=== PATIENT | female | born 1965 | race African-American/Black ===

== ENCOUNTER 2018-06-13 11:41 | Emergency (ER) | payer BC, MEDICAID ==
[~2018-06-13] VITALS: Ht 172.7 cm; Wt 119.7 kg
[2018-06-13 11:49] VITALS: BP 162/88
[2018-06-13] MEDS: LEVOFLOXACIN 500 MG TAB PO ONE (13:13)
[2018-06-13] MEDS: IBUPROFEN 600 MG TAB PO ONE (13:14)
[2018-06-13] MEDS: traMADol 50 MG TAB PO ONE (13:15)
[2018-06-13] MEDS: cefTRIAXone 1,000 MG in LIDOCAINE 1% ***ER ONLY *** 2.1 ML IM ONE (13:16)
[2018-06-13 14:51] LABS: APPEARANCE,URINE CLEAR (CLEAR); BILIRUBIN,URINE NEGATIVE (NEGATIVE); BLOOD, URINE NEGATIVE (NEGATIVE); COLOR,URINE YELLOW (YELLOW); LEUKOCYTE ESTERASE ,URINE NEGATIVE (NEGATIVE); NITRITE, URINE NEGATIVE (NEGATIVE); UGLUCOSE NEGATIVE (NEGATIVE)
[2018-06-13 15:51] VITALS: BP 157/81
== END 2018-06-13 15:30 | disposition home or self-care (01) ==
LOC: MED 11:41
DX: H66.93 Otitis media, unspecified, bilateral (principal); H60.12 Cellulitis of left external ear; J32.9 Chronic sinusitis, unspecified; E66.9 Obesity, unspecified; Z68.41 Body mass index [BMI] 40.0-44.9, adult; I10 Essential (primary) hypertension
CPT/HCPCS: 36415; 81003; 82948; 83036; 96372; 99284; J0696; J2001

== ENCOUNTER 2020-03-13 19:59 | Emergency (ER) | payer MEDICAID ==
[~2020-03-13] VITALS: Ht 172.7 cm; Wt 152.4 kg
[2020-03-13 20:06] VITALS: BP 119/68
--- NOTE | 2020-03-13 20:12 | NUR ---
PT AMBULATED TO LOBBY WITH STEADY GAIT.
--- NOTE | 2020-03-13 20:32 | NUR ---
PT TAKEN TO XRAY
--- NOTE | 2020-03-13 20:44 | NUR ---
PT RETURN TO ER LOBBY FROM RAD
--- NOTE | 2020-03-13 20:52 | NUR ---
PT TAKEN TO BED 7
--- NOTE | 2020-03-13 21:09 | NUR ---
Ronal salguero in [facility] - 03/13/20 at [address] Stein examining patient.
--- NOTE | 2020-03-13 21:09 | NUR ---
DR. AMAYA AT BEDSIDE.
--- NOTE | 2020-03-13 21:27 | NUR ---
X-Ray at bedside.
--- NOTE | 2020-03-13 21:46 | NUR ---
54 Y/O FEMALE PRESENTS TO THE ER WITH C/O RIGHT SHOULDER PAIN, ON AND OFF X 1 WEEK. 5/10 PAIN. PT STATES RIGHT SHOULDER PAIN WITH MOVEMENT, DENIES PAIN RADIATING TO OTHER LOCATION, INJURY/TRAUMA, CHEST PAIN, SOB, COUGH, NAUSEA, VOMITING, DIARRHEA, HEADACHE, NUMBNESS, TINGLING IN EXTREMITY. CAP REFILL <3 SEC, R/R EQUAL, AND UNLABORED, VSS, SIDE RAIL X1, BED IN LOW POSITION, WILL CONTINUE TO MONITOR NKDA PMH: HTN
--- NOTE | 2020-03-13 21:47 | NUR ---
Patient discharged with v/s stable. Written and verbal after care instructions given and explained. Patient alert, oriented and verbalized understanding of instructions. Ambulatory with steady gait. All questions addressed prior to discharge. ID band removed. Patient advised to follow up with PMD. Rx of ROBAXIN, MOTRIN given. Patient educated on indication of medication including possible reaction and side effects. Opportunity to ask questions provided and answered.
[2020-03-13 21:48] VITALS: BP 119/68
== END 2020-03-13 21:47 | disposition home or self-care (01) ==
LOC: MED 19:59
DX: S39.012A Strain of muscle, fascia and tendon of lower back, initial encounter (principal); I10 Essential (primary) hypertension; X58.XXXA Exposure to other specified factors, initial encounter; Y93.89 Activity, other specified; Y92.89 Other specified places as the place of occurrence of the external cause; Y99.8 Other external cause status
CPT/HCPCS: 71045; 73030; 99284

== ENCOUNTER 2021-07-19 13:22 | Emergency (ER) | payer MEDICAID ==
[~2021-07-19] VITALS: Ht 167.6 cm; Wt 140.2 kg
[2021-07-19 13:49] VITALS: BP 198/97
[2021-07-19] MEDS ORDERED: NAPR-54 PO (14:53)
[2021-07-19] MEDS ORDERED: AMOX-1000 PO (14:53)
--- NOTE | 2021-07-19 15:10 | NUR ---
Patient discharged with v/s stable. Written and verbal after care instructions given and explained. Patient alert, oriented and verbalized understanding of instructions. Ambulatory with steady gait. All questions addressed prior to discharge. ID band removed. Patient advised to follow up with PMD. Rx of Augmentin and Naproxen given. Patient educated on indication of medication including possible reaction and side effects. Opportunity to ask questions provided and answered.
== END 2021-07-19 15:10 | disposition home or self-care (01) ==
LOC: MED 13:22
DX: J32.1 Chronic frontal sinusitis (principal); Z20.822 Contact with and (suspected) exposure to COVID-19; M79.10 Myalgia, unspecified site; M25.511 Pain in right shoulder; M25.512 Pain in left shoulder; M54.2 Cervicalgia; I10 Essential (primary) hypertension; Z98.890 Other specified postprocedural states; Z79.899 Other long term (current) drug therapy
CPT/HCPCS: 71045; 87804; 99284

== ENCOUNTER 2023-12-22 12:14 | Inpatient (IN) | payer MEDICAID ==
[~2023-12-22] VITALS: Ht 170.2 cm; Wt 126.6 kg
[~2023-12-22 12:14] MED LIST: AMOX-1000 PO; NAPR-337 PO
[2023-12-22 12:17] VITALS: BP 160/82; PULSE 60; RESP 18; TEMP 98.3; O2SAT 98
[2023-12-22 12:51] LABS: BASOPHILS % (AUTO) 0.6 % (0.0-2.0); EOSINOPHILS # (AUTO) 0.1 K/uL (0-0.4); EOSINOPHILS % (AUTO) 1.6 % (0.0-4.0); HEMATOCRIT 35.5 % (36-48); HEMOGLOBIN 11.5 g/dL (12.0-16.0); LYMPHOCYTES # (AUTO) 2.2 K/uL (2.5-16.5); LYMPHOCYTES % (AUTO) 29.4 % (20.5-51.1); MEAN CORPUSCULAR HEMOGLOBIN 27 pg (27-31); MEAN CORPUSCULAR HGB CONC 33 g/dL (33-37); MONOCYTES # (AUTO) 0.6 K/uL (0.8-1.0); MONOCYTES % (AUTO) 8.5 % (1.7-9.3); NEUTROPHILS # (AUTO) 4.4 K/uL (1.8-7.7); NEUTROPHILS % (AUTO) 59.9 % (42.2-75.2); PLATELET COUNT (AUTO) 240 K/uL (140-450); RED BLOOD CELL COUNT(AUTO) 4.27 MIL/uL (4.20-5.40); RED CELL DISTRIBUTION WIDTH 14.5 % (11.6-13.7); WHITE BLOOD COUNT (AUTO) 7.4 K/uL (4.8-10.8)
[2023-12-22 13:01] LABS: ANION GAP 9.7 (8-16); CALCIUM 9.1 mg/dL (8.5-10.1); CARBON DIOXIDE 28.9 mmol/L (21-32); CREATININE 0.9 mg/dL (0.6-1.3); POTASSIUM 3.6 mmol/L (3.5-5.1)
[2023-12-22] MEDS: TETRACAINE HCL/PF 0.5% OPTH 4 ML BTL OP ONE (15:05)
[2023-12-22] MEDS: FLUORESCEIN OPTH STRIP 1 MG OP ONE (15:06)
[2023-12-22] MEDS: ASPIRIN 325 MG TAB PO ONE (15:11)
[2023-12-22] MEDS ORDERED: TOBRAMYCIN 0.3% OPTH OINT 3.5 GM TUBE OP SCH ×2 (16:00→17:32)
[2023-12-22 17:00] LABS: ANION GAP 10.7 (8-16); CALCIUM 9.1 mg/dL (8.5-10.1); CARBON DIOXIDE 27.8 mmol/L (21-32); CREATININE 0.9 mg/dL (0.6-1.3); POTASSIUM 3.5 mmol/L (3.5-5.1); TOTAL BILIRUBIN 0.5 mg/dL (0.0-1.0)
[2023-12-22 19:00] VITALS: PULSE 63; RESP 20; O2SAT 100
[2023-12-22] MEDS: TOBRAMYCIN 0.3% OPTH SOL 5 ML BTL OP SCH (19:50)
[2023-12-22 20:00] VITALS: BP 166/71; PULSE 63; RESP 20; TEMP 97.9; O2SAT 96
[2023-12-23] MEDS ORDERED: LORazepam 1 MG TAB PO PRN (00:15)
[2023-12-23] MEDS ORDERED: ONDANSETRON 4 MG/2 ML VIAL IVP PRN (00:15)
[2023-12-23] MEDS ORDERED: ZOLPIDEM 5 MG TAB PO PRN (00:15)
[2023-12-23] MEDS ORDERED: ASPIRIN 81 MG TAB.CHEW PO ONE (00:15)
[2023-12-23] MEDS ORDERED: NITROGLYCERIN 0.4 MG TAB SL PRN (00:15)
[2023-12-23 01:10] LABS: BASOPHILS % (AUTO) 0.4 % (0.0-2.0); EOSINOPHILS # (AUTO) 0.2 K/uL (0-0.4); EOSINOPHILS % (AUTO) 1.8 % (0.0-4.0); HEMATOCRIT 33.5 % (36-48); HEMOGLOBIN 10.8 g/dL (12.0-16.0); LYMPHOCYTES # (AUTO) 3.6 K/uL (2.5-16.5); LYMPHOCYTES % (AUTO) 41.5 % (20.5-51.1); MEAN CORPUSCULAR HEMOGLOBIN 27 pg (27-31); MEAN CORPUSCULAR HGB CONC 32 g/dL (33-37); MEAN CORPUSCULAR VOLUME 83.2 fL (80-94); NEUTROPHILS % (AUTO) 45.3 % (42.2-75.2); PLATELET COUNT (AUTO) 249 K/uL (140-450); RED BLOOD CELL COUNT(AUTO) 4.03 MIL/uL (4.20-5.40); RED CELL DISTRIBUTION WIDTH 14.4 % (11.6-13.7); WHITE BLOOD COUNT (AUTO) 8.7 K/uL (4.8-10.8)
[2023-12-23 01:27] LABS: CHOL/HDL RATIO 2.3 (1-4.5)
[2023-12-23 04:00] VITALS: BP 149/79; PULSE 71; RESP 20; TEMP 98.1; O2SAT 97
[2023-12-23] MEDS: ACETAMINOPHEN 325 MG TAB PO PRN (04:25)
[2023-12-23 08:00] VITALS: BP 131/77; PULSE 62; PULSE 71; RESP 18; TEMP 97.3; O2SAT 94; O2SAT 97
[2023-12-23] MEDS ORDERED: LOSARTAN 25 MG TAB PO SCH (09:00)
[2023-12-23] MEDS: LOSARTAN 50 MG TAB PO SCH (09:46)
[2023-12-23] MEDS: PANTOPRAZOLE 40 MG INJ VIAL IVP SCH (09:46)
[2023-12-23] MEDS: carvediloL 3.125 MG TAB PO SCH (09:47)
[2023-12-23] MEDS: DOCUSATE SODIUM 100 MG GELCAP PO SCH (09:55)
[2023-12-23] MEDS: hydroCHLOROthiazide 25 MG TAB PO SCH (11:38)
[2023-12-23] MEDS: FUROSEMIDE 20 MG/2 ML VIAL IVP SCH (13:56)
[2023-12-23 18:00] VITALS: BP 149/81; PULSE 61; RESP 18; TEMP 97.7; O2SAT 97
[2023-12-23 20:00] VITALS: BP 187/71; PULSE 68; RESP 19; TEMP 97.3; TEMP 97.7; O2SAT 100
[2023-12-23] MEDS: SIMVASTATIN 20 MG TAB PO SCH (21:21)
[2023-12-24] VITALS: BP 183/70; PULSE 62; RESP 19; TEMP 97.7; O2SAT 100
[2023-12-24] MEDS: hydrALAZINE 20 MG/ML VIAL IVP PRN (00:06)
[2023-12-24 04:00] VITALS: BP 160/81; PULSE 64; RESP 18; TEMP 97.1; O2SAT 100
[2023-12-24 05:53] LABS: BASOPHILS % (AUTO) 0.4 % (0.0-2.0); EOSINOPHILS # (AUTO) 0.2 K/uL (0-0.4); EOSINOPHILS % (AUTO) 1.9 % (0.0-4.0); HEMOGLOBIN 10.9 g/dL (12.0-16.0); LYMPHOCYTES # (AUTO) 3.2 K/uL (2.5-16.5); MEAN CORPUSCULAR HEMOGLOBIN 27 pg (27-31); MEAN CORPUSCULAR HGB CONC 32 g/dL (33-37); MEAN CORPUSCULAR VOLUME 83.6 fL (80-94); MONOCYTES # (AUTO) 0.7 K/uL (0.8-1.0); MONOCYTES % (AUTO) 8.9 % (1.7-9.3); NEUTROPHILS # (AUTO) 4.3 K/uL (1.8-7.7); NEUTROPHILS % (AUTO) 50.8 % (42.2-75.2); PLATELET COUNT (AUTO) 236 K/uL (140-450); RED BLOOD CELL COUNT(AUTO) 4.07 MIL/uL (4.20-5.40); RED CELL DISTRIBUTION WIDTH 14.3 % (11.6-13.7); WHITE BLOOD COUNT (AUTO) 8.4 K/uL (4.8-10.8)
[2023-12-24 08:00] VITALS: BP 139/76; PULSE 52; RESP 19; TEMP 97.8; TEMP 98.2; O2SAT 100; O2SAT 99
[2023-12-24 08:14] LABS: ANION GAP 14.4 (8-16); CALCIUM 9.1 mg/dL (8.5-10.1); CARBON DIOXIDE 25.2 mmol/L (21-32); CREATININE 0.9 mg/dL (0.6-1.3); POTASSIUM 3.6 mmol/L (3.5-5.1); TOTAL BILIRUBIN 0.3 mg/dL (0.0-1.0); TOTAL PROTEIN, SERUM 6.9 g/dL (6.4-8.2)
[2023-12-24 16:00] VITALS: BP 147/82; PULSE 62; RESP 19; TEMP 97.9; O2SAT 100
[2023-12-24 20:00] VITALS: BP 160/78; PULSE 65; RESP 18; TEMP 97.7; O2SAT 97
[2023-12-24] MEDS: carvediloL 6.25 MG TAB PO SCH (20:51)
[2023-12-25 04:00] VITALS: BP 138/79; PULSE 60; RESP 18; TEMP 98.2; O2SAT 98
[2023-12-25 05:35] LABS: BASOPHILS # (AUTO) 0.1 K/uL (0.00-0.22); BASOPHILS % (AUTO) 0.7 % (0.0-2.0); EOSINOPHILS # (AUTO) 0.2 K/uL (0-0.4); EOSINOPHILS % (AUTO) 1.9 % (0.0-4.0); HEMATOCRIT 34.8 % (36-48); HEMOGLOBIN 11.1 g/dL (12.0-16.0); LYMPHOCYTES # (AUTO) 3.2 K/uL (2.5-16.5); MEAN CORPUSCULAR HEMOGLOBIN 27 pg (27-31); MEAN CORPUSCULAR HGB CONC 32 g/dL (33-37); MEAN CORPUSCULAR VOLUME 83.8 fL (80-94); MONOCYTES # (AUTO) 0.7 K/uL (0.8-1.0); MONOCYTES % (AUTO) 7.6 % (1.7-9.3); NEUTROPHILS # (AUTO) 4.6 K/uL (1.8-7.7); NEUTROPHILS % (AUTO) 52.8 % (42.2-75.2); PLATELET COUNT (AUTO) 239 K/uL (140-450); RED BLOOD CELL COUNT(AUTO) 4.16 MIL/uL (4.20-5.40); RED CELL DISTRIBUTION WIDTH 14.6 % (11.6-13.7); WHITE BLOOD COUNT (AUTO) 8.7 K/uL (4.8-10.8)
[2023-12-25 05:59] LABS: ALBUMIN 2.9 g/dL (3.4-5.0); ANION GAP 10.9 (8-16); CARBON DIOXIDE 29.8 mmol/L (21-32); POTASSIUM 3.7 mmol/L (3.5-5.1); TOTAL BILIRUBIN 0.3 mg/dL (0.0-1.0); TOTAL PROTEIN, SERUM 6.8 g/dL (6.4-8.2)
[2023-12-25] MEDS ORDERED: NIFE60TA39 PO (09:07)
[2023-12-25] MEDS ORDERED: HYDR25TA32 PO (09:07)
[2023-12-25] MEDS ORDERED: SIMV-30 PO (09:07)
[2023-12-25] MEDS ORDERED: TOBR5DRO OP (09:07)
[2023-12-25] MEDS ORDERED: CLON0.1T16 PO (09:07)
[2023-12-25] MEDS ORDERED: LOSA-270 PO (09:07)
[2023-12-25] MEDS ORDERED: CARV6.252 PO (09:09)
[2023-12-25] MEDS: NIFEdipine 60 MG TABER PO SCH (09:35)
[2023-12-25 10:01] VITALS: BP 140/73; PULSE 55; RESP 17; TEMP 97.6
== END 2023-12-25 12:40 | disposition home or self-care (01) | DRG 82 ==
LOC: MED 12:14 → MMU 16:17 → MTU 17:28
PROVIDERS: ADMIT Internal Medicine; ATTEND Internal Medicine
DX: H16.001 Unspecified corneal ulcer, right eye (principal); I21.A1 Myocardial infarction type 2; E66.01 Morbid (severe) obesity due to excess calories; I10 Essential (primary) hypertension; E78.00 Pure hypercholesterolemia, unspecified; F12.90 Cannabis use, unspecified, uncomplicated; H10.89 Other conjunctivitis; Z68.41 Body mass index [BMI] 40.0-44.9, adult
CPT/HCPCS: 36415; 71045; 80048; 80053; 83036; 84484; 85025; 87081; 93005; 93971; 99285; C9113; J0360; J1940; Q0092